=== PATIENT | male | born 1990 | race Caucasian/White ===

== ENCOUNTER 2016-07-29 14:57 | Emergency (ER) | payer BC ==
[2016-07-29 16:41] LABS: CALCIUM 9.2 mg/dL (8.5-10.1); CARBON DIOXIDE 28.2 mmol/L (21-32); CHLORIDE SERUM 104 mmol/L (98-107); CREATININE SERUM 1.1 mg/dL (0.7-1.3); GFR1 > 60 mL/min; GLUCOSE SERUM 114 mg/dL (74-106); POTASSIUM SERUM 4.1 mmol/L (3.5-5.1); SODIUM SERUM 142 mmol/L (136-145)
[2016-07-29 16:45] LABS: ALBUMIN 4.4 g/dL (3.4-5.0); ALKALINE PHOSPHATASE 64 U/L (46-116); ALT/SGPT 35 U/L (16-63); AST/SGOT 15 U/L (15-37); BASOPHIL % 0.1 % (0-2); BILIRUBIN TOTAL 1.3 mg/dL (0.20-1.00); LIPASE 145 IU/L (73-393); PLATELET COUNT 235 x10^3mcL (130-400); RED CELL DISTRIBUTION WIDTH 13.7 % (11.5-14.5); TOTAL PROTEIN, SERUM 7.8 g/dL (6.4-8.2)
[2016-07-29 17:20] LABS: microscopic required? YES; urine erythrocyte NEGATIVE (NEGATIVE)
[2016-07-29 18:12] LABS: AMPHETAMINE QUAL UR NONE DETECTED (NEG <=1000)
[2016-07-29 19:28] VITALS: BP 120/68
== END 2016-07-29 19:28 | disposition home or self-care (01) ==
LOC: ED 14:57
PROVIDERS: Emergency Medicine
DX: K29.20 Alcoholic gastritis without bleeding (principal); R03.0 Elevated blood-pressure reading, without diagnosis of hypertension
CPT/HCPCS: 80307; J2060; J2270; J2405; J2765; J3490; J7030; Q0092